=== PATIENT | male | born 1965 | race Caucasian/White ===

== ENCOUNTER 2017-08-03 06:42 | Day surgery (SDC) | payer OTHER ==
[~2017-08-03] VITALS: Ht 180.3 cm; Wt 138.3 kg
--- NOTE | ~2017-08-03 | EGD ---
EGD REPORT [facility] [address] [place] [address] NAME: BRYANT WOLFF : [birth year] STATUS : REG [facility] [place] PAT#: [id number] AGE: 52 ADM/REG DATE : 08/03/17 MR#: [id number] REPORT SERV DATE: 08/03/17 DICTATED BY: RANDA CORTES DATE: 08/03/17 REPORT STATUS : Draft [facility] DATE: 08/03/17 End[facility] Center Patient Name: Bryant Wolff Date of : 1965 Attending MD: RANDA CORTES, Procedure Date No Time: 08/03/2017 Procedure: Colonoscopy Indications: Screening for colorectal malignant neoplasm Referring MD: RAYNE SENIOR Medicines: Monitored Anesthesia Care Complications: No immediate complications. Estimated blood loss: None. Procedure: Pre-Anesthesia Assessment: - ASA Grade Assessment: II - A patient with mild systemic disease. After I obtained informed consent, the scope was passed under direct vision. Throughout the procedure, the patient's blood pressure, pulse, and oxygen saturations were monitored continuously. The CF [id number] was introduced through the anus and advanced to the cecum, identified by appendiceal orifice and ileocecal valve. The colonoscopy was performed without difficulty. The patient tolerated the procedure well. The quality of the bowel preparation was good. Findings: The perianal and digital rectal examinations were normal. A sessile polyp was found in the transverse colon. The polyp was 10 mm in size. The polyp was removed with a hot snare. Resection and retrieval were complete. Verification of patient identification for the specimen was done. Estimated blood loss was minimal. A sessile polyp was found in the sigmoid colon. The polyp was 4 mm in size. The polyp was removed with a cold biopsy forceps. Resection and retrieval were complete. Verification of patient identification for the specimen was done. Estimated blood loss was minimal. Non-bleeding internal hemorrhoids were found during retroflexion and were Grade I (internal hemorrhoids that do not prolapse). The exam was otherwise without abnormality on direct and retroflexion views. Impression: - One 10 mm polyp in the transverse colon. Resected and retrieved. - One 4 mm polyp in the sigmoid colon. Resected and retrieved. - Non-bleeding internal hemorrhoids. - The examination was otherwise normal on direct and EGD REPORT [address] [place]. [address] NAME: BRYANT WOLFF : [birth year] STATUS : REG [facility]#: [id number] AGE: 52 ADM/REG DATE : 08/03/17 MR#: [id number] REPORT SERV DATE: 08/03/17 DICTATED BY: RANDA CORTES DATE: 08/03/17 REPORT STATUS : Draft TRANSCRIBED BY: [facility] DATE: 08/03/17 retroflexion views. Recommendation: - Patient has a contact number available for emergencies. The signs and symptoms of potential delayed complications were discussed with the patient. Return to normal activities tomorrow. Written discharge instructions were provided to the patient. - Return to previous diet. - Continue present medications. - Await pathology results. - Repeat colonoscopy for surveillance based on pathology results. Procedure Code(s): --- Professional --- 38495, Colonoscopy, flexible, proximal to splenic flexure; with removal of tumor(s), polyp(s), or other lesion(s) by snare technique 87011, 59, Colonoscopy, flexible, proximal to splenic flexure; with biopsy, single or multiple Diagnosis Code(s): --- Professional --- D12.5, Benign neoplasm of sigmoid colon D12.3, Benign neoplasm of transverse colon K64.0, First degree hemorrhoids Z12.11, Encounter for screening for malignant neoplasm of colon CPT copyright 2013 [employer]. All rights reserved. The codes documented in this report are preliminary and upon fryline attendant review may be revised to meet current compliance requirements. RANDA CORTES, 08/03/2017 8:22 AM Number of Addenda: 0 Note Initiated On: 08/03/2017 7:50 AM Scope Withdrawal Time 0 hours 18 minutes 45 seconds [address] [place] [address]
[~2017-08-03 06:42] MED LIST: MULTI-VIT HP PO; WELL100 PO
== END 2017-08-03 23:59 | disposition home or self-care (01) ==
LOC: DMU 06:42
PROVIDERS: Internal Medicine Gastroenterology
PROC: 0DBL8ZZ Excision of Transverse Colon, Via Natural or Artificial Opening Endoscopic (ICD-10-PCS; principal; 2017-08-03 07:30)
PROC: 0DBN8ZZ Excision of Sigmoid Colon, Via Natural or Artificial Opening Endoscopic (ICD-10-PCS; 2017-08-03 07:30)
DX: Z12.11 Encounter for screening for malignant neoplasm of colon (principal); D12.3 Benign neoplasm of transverse colon; K63.5 Polyp of colon; K64.0 First degree hemorrhoids; J45.909 Unspecified asthma, uncomplicated; M19.90 Unspecified osteoarthritis, unspecified site; E66.9 Obesity, unspecified; Z68.41 Body mass index [BMI] 40.0-44.9, adult; Z88.0 Allergy status to penicillin; Z79.899 Other long term (current) drug therapy; Z87.891 Personal history of nicotine dependence; Z98.890 Other specified postprocedural states
CPT/HCPCS: 88305